=== PATIENT | female | born 2000 | race Two or more races ===

== ENCOUNTER 2019-11-07 07:18 | Outpatient (CLI) | payer OTHER ==
[~2019-11-07 07:18] MED LIST: BIRTH CONTROL PILL PO
== END 2019-11-07 23:59 | disposition home or self-care (01) ==
LOC: CFH 07:18
PROVIDERS: ATTEND Obstetrics & Gynecology
DX: R22.1 Localized swelling, mass and lump, neck (principal); N63.11 Unspecified lump in the right breast, upper outer quadrant; N63.13 Unspecified lump in the right breast, lower outer quadrant; N63.14 Unspecified lump in the right breast, lower inner quadrant; N63.21 Unspecified lump in the left breast, upper outer quadrant
CPT/HCPCS: 76642